=== PATIENT | female | born 1985 | race Caucasian/White ===

== ENCOUNTER 2022-10-12 19:39 | Emergency (ER) | payer OTHER ==
[~2022-10-12] VITALS: Ht 182.9 cm; Wt 95.3 kg
[2022-10-12 19:45] VITALS: BP 100/69
--- NOTE | 2022-10-12 21:10 | NUR ---
WITH DR. CAO FOR EXAM. PT HAS A RASH TO RIGHT UPPER BACK AROUND TO AND UNDER RIGHT BREAST. WHAT LOOKS TO POSSIBLY BE SHINGLES.
[2022-10-12] MEDS ORDERED: IBUP-2213 PO ×2 (21:16→21:34)
[2022-10-12] MEDS ORDERED: VALA1TAB40 PO ×2 (21:16→21:34)
[2022-10-12 21:20] VITALS: BP 100/69
--- NOTE | 2022-10-12 21:20 | NUR ---
Patient discharged with v/s stable. Written and verbal after care instructions given and explained. Patient alert, oriented and verbalized understanding of instructions. Ambulatory with steady gait. All questions addressed prior to discharge. ID band removed. Patient advised to follow up with PMD. Rx of MOTRIN, VALACYCLOVIR given. Patient educated on indication of medication including possible reaction and side effects. Opportunity to ask questions provided and answered.
== END 2022-10-12 21:20 | disposition home or self-care (01) ==
LOC: MED 19:39
DX: B02.9 Zoster without complications (principal); I10 Essential (primary) hypertension; E78.5 Hyperlipidemia, unspecified; Z79.899 Other long term (current) drug therapy; Z79.1 Long term (current) use of non-steroidal anti-inflammatories (NSAID)
CPT/HCPCS: 99283